=== PATIENT | female | born 1965 | race Hispanic/Latino ===

== ENCOUNTER 2018-06-02 20:56 | Inpatient (IN) | payer MEDICAID, OTHER ==
--- NOTE | 2018-06-02 21:21 | ED PDOC ---
Arrival/HPI - General Time Seen by Provider: 06/02/18 21:03 Historian: Patient - History of Present Illness Narrative History of Present Illness (Text): 06/02/18 21:20 Joleen Garcia is a 53 year old female, whose past medical history includes depression, who presents to the emergency department transferred from [facility] for depression and suicidal ideation. Patient was medically cleared at the previous institution and accepted for psychiatric admission by the psychiatrist medical sonographer. Patient admits to feeling depressed, notes she has been unable to take her anti-depressants due insurance issues. Patient denies any somatic complaints. Symptom Onset: Gradual Symptom Course: Unchanged Activities at Onset: Light Context: Other (Transferred from [facility]) Past Medical History - Provider Review Nursing Documentation Reviewed: Yes Family/Social History - Physician Review Nursing Documentation Reviewed: Yes Family/Social History: Unknown Family HX Allergies/Home Meds Allergies/Adverse Reactions: Allergies No Known Allergies Allergy (Verified 06/02/18 21:30) Home Medications: Home Meds Medication Instructions Recorded Confirmed RX: No Known Home Med 06/02/18 06/02/18 Review of Systems - Physician Review All systems were reviewed & negative as marked: Yes - Review of Systems Constitutional: Normal. absent: Fevers Eyes: Normal ENT: Normal Respiratory: Normal. absent: SOB, Cough Cardiovascular: Normal. absent: Chest Pain Gastrointestinal: Normal. absent: Abdominal Pain, Diarrhea, Nausea, Vomiting Genitourinary Female: Normal. absent: Dysuria, Frequency, Hematuria, Urine Output Changes Musculoskeletal: Normal. absent: Back Pain, Neck Pain Skin: Normal. absent: Rash Neurological: Normal. absent: Headache, Dizziness Endocrine: Normal Hemo/Lymphatic: Normal Psychiatric: Depression, Suicidal Ideation Physical Exam Vital Signs Reviewed: Yes Temperature: Afebrile Blood Pressure: Hypertensive Pulse: Regular Respiratory Rate: Normal Appearance: Positive for: Well-Appearing, Non-Toxic, Comfortable Pain Distress: None Mental Status: Positive for: Alert and Oriented X 3 - Systems Exam Head: Present: Atraumatic, Normocephalic Pupils: Present: PERRL Extroacular Muscles: Present: EOMI Conjunctiva: Present: Normal Mouth: Present: Moist Mucous Membranes Neck: Present: Normal Range of Motion Respiratory/Chest: Present: Clear to Auscultation, Good Air Exchange. No: Respiratory Distress, Accessory Muscle Use Cardiovascular: Present: Regular Rate and Rhythm, Normal S1, S2. No: Murmurs Abdomen: No: Tenderness, Distention, Peritoneal Signs Back: Present: Normal Inspection Upper Extremity: Present: Normal Inspection. No: Cyanosis, Edema Lower Extremity: Present: Normal Inspection. No: Edema Neurological: Present: GCS=15, CN II-XII Intact, Speech Normal Skin: Present: Warm, Dry, Normal Color. No: Rashes Psychiatric: Present: Alert, Oriented x 3, Normal Insight, Normal Concentration Medical Decision Making ED Course and Treatment: 06/02/18 21:55 Impression: 53 year old female transferred from [facility] for depression and suicidal ideation. Differential Diagnosis included but are not limited to: Plan: -- Admit to [facility] Progress Notes: Patient was medically cleared at the previous institution and accepted for psychiatric admission by the psychiatrist medical sonographer. Patient will be admitted to [facility] for depression and suicidal ideation. Pt agreeable with plan. - Scribe Statement The provider has reviewed the documentation as recorded by the [employer] [place] All medical record entries made by the Scribe were at my direction and personally dictated by me. I have reviewed the chart and agree that the record accurately reflects my personal performance of the history, physical exam, medical decision making, and the department course for this patient. I have also personally directed, reviewed, and agree with the discharge instructions and disposition. Disposition/Present on Arrival - Present on Arrival Any Indicators Present on Arrival: No History of DVT/PE: No History of Uncontrolled Diabetes: No Urinary Catheter: No History of Decub. Ulcer: No History Surgical Site Infection Following: None - Disposition Have Diagnosis and Disposition been Completed?: Yes Diagnosis: Depression, Suicidal ideation Disposition: HOSPITALIZED Disposition Time: 21:55 Patient Plan: Admission Patient Problems: Current Active Problems Problem Status Onset Depression Acute Suicidal ideation Acute Condition: STABLE
[2018-06-02 22:17] VITALS: O2SAT 97
[2018-06-02] MEDS ORDERED: Magnesium Hydroxide Susp 30 ml UD PO PRN (23:25)
[2018-06-02] MEDS ORDERED: Alum-Mag Hydrox-Simethicone Susp (30 mL) PO PRN (23:26)
--- NOTE | 2018-06-03 02:32 | PCM.BM ---
<Karla Duarte - Last Filed: 06/03/18 02:29> Treatment Plan Problems - Problems identified on initial assessmt Ineffective coping Date Initiated: 06/02/18 Time Initiated: 22:50 Assessment reference: NA Status: Active Altered Sleep Pattern Date Initiated: 06/02/18 Time Initiated: 22:55 Assessment reference: NA Status: Active <Rc Hendricks - Last Filed: 06/03/18 10:01> - Diagnosis (1) Depression Status: Acute Interventions: 06/03/18 10:01 Group, milieu and supportive tx * Lexapro 10 mg HS for depression and anxiety * Klonopin 0.5 mg po q12 prn anxiety * Ambien 5 mg po HS prn: insomnia. Sonata provided on 06/02/18 was not effective. * Nicotine patch 14 mg topical daily for nicotine cravings. * Awaiting medical consult <Dion Byers - Last Filed: 06/11/18 12:36>
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
[2018-06-04 07:13] LABS: BASO # 0.01 K/mm3 (0.0-2.0); BASO % 0.1 % (0.0-3.0); EOS # 0.2 (0.0-0.7); EOS % 2.2 % (1.5-5.0); GRAN # 6.71 (1.4-6.5); GRAN % 66.2 % (50.0-68.0); HEMOGLOBIN 14.8 g/dL (12.0-16.0); LYMPH # 2.6 (1.2-3.4); LYMPH % 25.2 % (22.0-35.0); MEAN CELL VOLUME 78.7 fl (80.0-105.0); MEAN CORPUSCULAR HEMOGLOBIN 26.3 pg (25.0-35.0); MEAN CORPUSCULAR HGB CONC 33.4 g/dl (31.0-37.0); MEAN PLATELET VOLUME 11.6 fl (7.0-11.0); MONO # 0.6 (0.1-0.6); MONO % 6.3 % (1.0-6.0); RBC 5.63 10^6/uL (3.5-6.1); WHITE BLOOD COUNT 10.1 10^3/uL (4.5-11.0)
[2018-06-04 07:25] LABS: ALB/GLOB RATIO 1.3 (1.1-1.8); ALBUMIN 3.8 g/dL (3.0-4.8); ALT/SGPT 25 U/L (7-56); AST/SGOT 12 U/L (14-36); BLOOD UREA NITROGEN 10 mg/dL (7-21); CALCIUM 9.1 mg/dL (8.4-10.5); GFR NON-AFRICAN AMERICAN > 60
--- NOTE | 2018-06-04 13:56 | CP.PCM.CON ---
History of Present Illness - History of Present Illness History of Present Illness: Resident Consult Note for Hospitalist Service Patient is a 53 year old female with past medical history of migraines, GERD, depression presenting with chief complaint of headache. The pain is described as a constant throbbing pain located all around her head. Patient states she has had migraines since she was a teenager. She typically sees flashing lights before the onset of the headache and that her symptoms are aggravated by stress. She has been noncompliant with her medications due to insurance issues. Patient was also found to have elevated blood pressure at 176/110. She denies any history of high blood pressure. She currently denies any dizziness, vision changes, hearing changes, chest pain, shortness of breath, abdominal pain, changes in bowel movements, dysuria. PMH: migraines, GERD, depression PSH: tubal ligation SHx: denies alcohol or recreational drug use. Smoked 1/2 PPD for over 30 years Allergies: NKDA Home meds: Protonix, Relpax, Lexapro 12 point ROS was negative except as stated in HPI Review of Systems - Constitutional Constitutional: Headache. absent: Chills, Fever - EENT Eyes: absent: Change in Vision Ears: absent: Abnormal Hearing - Cardiovascular Cardiovascular: absent: Chest Pain, Diaphoresis, Dyspnea - Respiratory Respiratory: absent: Cough - Gastrointestinal Gastrointestinal: absent: Abdominal Pain, Constipation, Diarrhea - Genitourinary Genitourinary: absent: Change in Urinary Stream, Difficulty Urinating, Dysuria, Urinary Incontinence, Urinary Frequency - Psychiatric Psychiatric: Depression Past Patient History - Past Social History Smoking Status: Light Smoker < 10 Cigarettes Daily - CARDIAC Hx Cardiac Disorders: No - PULMONARY Hx Respiratory Disorders: No - NEUROLOGICAL Hx Neurological Disorder: Yes Hx Migraine: Yes - HEENT Hx HEENT Problems: No - RENAL Hx Chronic Kidney Disease: No - ENDOCRINE/METABOLIC Hx Endocrine Disorders: No - HEMATOLOGICAL/ONCOLOGICAL Hx Blood Disorders: No - INTEGUMENTARY Hx Dermatological Problems: No - MUSCULOSKELETAL/RHEUMATOLOGICAL Hx Musculoskeletal Disorders: No - GASTROINTESTINAL Hx Gastrointestinal Disorders: No Hx Gastroesophageal Reflux: Yes - GENITOURINARY/GYNECOLOGICAL Hx Genitourinary Disorders: No - PSYCHIATRIC Hx Substance Use: No - SURGICAL HISTORY Hx Surgeries: No - ANESTHESIA Hx Anesthesia: No Meds Allergies/Adverse Reactions: Allergies Allergy/AdvReac Type Severity Reaction Status Date / Time No Known Allergies Allergy Verified 06/02/18 21:30 - Medications Medications: Current Medications Al Hydrox/Mg Hydrox/Simethicone (Maalox Plus 30 Ml) 30 ml PO DAILY PRN PRN Reason: Indigestion / Heartburn Amlodipine Besylate (Norvasc) 2.5 mg PO DAILY JENNIFER Clonazepam (Klonopin) 0.5 mg PO Q12 PRN; Protocol PRN Reason: Anxiety Last Admin: 06/04/18 02:17 Dose: 0.5 mg Escitalopram Oxalate (Lexapro) 10 mg PO HS JENNIFER Last Admin: 06/03/18 22:52 Dose: 10 mg Famotidine (Pepcid) 20 mg PO 1000,2200 JENNIFER Ibuprofen (Motrin Tab) 600 mg PO Q6H PRN PRN Reason: headache, fever >100 Last Admin: 06/04/18 11:05 Dose: 600 mg Magnesium Hydroxide (Milk Of Magnesia) 30 ml PO DAILY PRN PRN Reason: Constipation Nicotine (Nicoderm Cq) 1 patch TD DAILY JENNIFER Zolpidem Tartrate (Ambien) 5 mg PO HS PRN; Protocol PRN Reason: Insomnia Last Admin: 06/03/18 22:52 Dose: 5 mg Physical Exam - Constitutional Appears: Non-toxic, No Acute Distress - Head Exam Head Exam: ATRAUMATIC, NORMOCEPHALIC - Eye Exam Eye Exam: EOMI, Normal appearance, PERRL - ENT Exam ENT Exam: Mucous Membranes Moist, Normal Exam - Neck Exam Neck exam: Negative for: Lymphadenopathy, Tenderness - Respiratory Exam Respiratory Exam: Clear to Auscultation Bilateral, NORMAL BREATHING PATTERN. absent: Respiratory Distress - Cardiovascular Exam Cardiovascular Exam: REGULAR RHYTHM, +S1, +S2 - GI/Abdominal Exam GI & Abdominal Exam: Normal Bowel Sounds, Soft. absent: Tenderness - Extremities Exam Extremities exam: Positive for: full ROM, normal capillary refill, normal inspection. Negative for: calf tenderness - Neurological Exam Neurological exam: Alert, CN II-XII Intact, Oriented x3 - Psychiatric Exam Psychiatric exam: Normal Affect, Normal Mood - Skin Skin Exam: Dry, Intact, Normal Color Results - Vital Signs Recent Vital Signs: Last Vital Signs Temp 98.2 F 06/04/18 07:18 Pulse 81 06/04/18 07:18 Resp 20 06/04/18 07:18 BP 173/98 H 06/04/18 07:18 Pulse Ox 97 06/02/18 22:15 - Labs Result Diagrams: 06/04/18 06:40 06/04/18 06:40 Labs: Laboratory Results - last 24 hr 06/04/18 06/04/18 06:40 06:40 WBC 10.1 RBC 5.63 Hgb 14.8 Hct 44.3 MCV 78.7 L MCH 26.3 MCHC 33.4 RDW 16.0 H Plt Count 177 MPV 11.6 H Gran % 66.2 Lymph % (Auto) 25.2 [place] % (Auto) 6.3 H Eos % (Auto) 2.2 Baso % (Auto) 0.1 Gran # 6.71 H Lymph # (Auto) 2.6 [place] # (Auto) 0.6 Eos # (Auto) 0.2 Baso # (Auto) 0.01 Sodium 132 Potassium 3.8 Chloride 100 Carbon Dioxide 24 Anion Gap 12 BUN 10 Creatinine 0.6 L Est GFR ( Amer) > 60 Est GFR (Non-Af Amer) > 60 Random Glucose 113 H Calcium 9.1 Phosphorus 3.2 Magnesium 1.9 Total Bilirubin 0.8 AST 12 L ALT 25 Alkaline Phosphatase 58 Total Protein 6.8 Albumin 3.8 Globulin 3.0 Albumin/Globulin Ratio 1.3 Assessment & Plan - Assessment and Plan (Free Text) Assessment: Patient is a 53 year old female with past medical history of migraines, GERD, depression presenting with chief complaint of headache and was found to have rehan vated blood pressure. Plan: Hypertension - AM blood pressure was elevated at 176/110 - 2.5 mg amlodipine x2 was given - continue amlodipine 2.5 mg PO daily - Hydralazine 20 mg PO QID PRN - Followup renal ultrasound Migraines - Sumatriptan 25 mg PO once GERD - Continue pepcid 20 mg PO BID Depression - Continue management per psychiatry team Case discussed with attending Dr. Ingrid Dhillon PGY-1 - Date & Time Date: 06/04/18 Time: 08:00
[2018-06-04 16:10] LABS: URINE BILIRUBIN NEGATIVE (NEGATIVE); URINE BLOOD NEGATIVE (NEGATIVE); URINE GLUCOSE (UA) NEGATIVE (NEGATIVE); URINE LEUKOCYTE ESTERASE NEGATIVE Leu/uL (NEGATIVE); URINE PROTEIN NEGATIVE mg/dL (<30 mg/dL); URINE UROBILINOGEN 0.2 E.U./dL (<1 E.U./dL)
[2018-06-04 16:17] LABS: URINE APPEARANCE CLEAR (CLEAR); URINE COLOR YELLOW (YELLOW)
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
--- NOTE | 2018-06-05 09:55 | CP.PCM.PN ---
Subjective - Date & Time of Evaluation Date of Evaluation: 06/05/18 Time of Evaluation: 07:30 - Subjective Subjective: Resident Progress Note for Hospitalist Service No acute evens overnight. Patient states that her headache was improved earlier in the morning, but has now returned. She states that she now recalls having had a "popping sensation" in her head a few days prior. She admits to occasional blurry vision. She denies any dizziness, loss of consciousness, hearing changes. Objective - Vital Signs/Intake and Output Vital Signs (last 24 hours): Temp Pulse Resp BP Pulse Ox 97.9 F 84 20 141/92 H 97 06/05/18 06:50 06/05/18 07:07 06/05/18 06:50 06/05/18 09:04 06/02/18 22:15 - Medications Medications: Current Medications Al Hydrox/Mg Hydrox/Simethicone (Maalox Plus 30 Ml) 30 ml PO DAILY PRN PRN Reason: Indigestion / Heartburn Last Admin: 06/04/18 18:16 Dose: 30 ml Amlodipine Besylate (Norvasc) 2.5 mg PO ONCE ONE Stop: 06/05/18 17:08 Amlodipine Besylate (Norvasc) 5 mg PO DAILY [facility] Clonazepam (Klonopin) 0.5 mg PO Q12 PRN; Protocol PRN Reason: Anxiety Last Admin: 06/04/18 16:16 Dose: 0.5 mg Clonidine HCl (Catapres) 0.1 mg PO BID [facility] Last Admin: 06/05/18 07:07 Dose: 0.1 mg Escitalopram Oxalate (Lexapro) 10 mg PO HS [facility] Last Admin: 06/04/18 21:02 Dose: 10 mg Famotidine (Pepcid) 20 mg PO 1000,2200 [facility] Last Admin: 06/05/18 09:04 Dose: 20 mg Hydralazine HCl (Apresoline) 20 mg PO QID PRN PRN Reason: Other Last Admin: 06/04/18 20:29 Dose: 20 mg Ibuprofen (Motrin Tab) 600 mg PO Q6H PRN PRN Reason: headache, fever >100 Last Admin: 06/05/18 02:33 Dose: 600 mg Magnesium Hydroxide (Milk Of Magnesia) 30 ml PO DAILY PRN PRN Reason: Constipation Nicotine (Nicoderm Cq) 1 patch TD DAILY [facility] Last Admin: 06/05/18 09:05 Dose: 1 patch Zolpidem Tartrate (Ambien) 5 mg PO HS PRN; Protocol PRN Reason: Insomnia Last Admin: 06/04/18 21:14 Dose: 5 mg - Labs Labs: 06/04/18 06:40 06/04/18 06:40 - Additional Findings Additional findings: - Constitutional Appears: Non-toxic, No Acute Distress - Head Exam Head Exam: ATRAUMATIC, NORMOCEPHALIC - Eye Exam Eye Exam: EOMI, Normal appearance, PERRL - ENT Exam ENT Exam: Mucous Membranes Moist, Normal Exam - Neck Exam Neck exam: Negative for: Lymphadenopathy, Tenderness - Respiratory Exam Respiratory Exam: Clear to Auscultation Bilateral, NORMAL BREATHING PATTERN. absent: Respiratory Distress - Cardiovascular Exam Cardiovascular Exam: REGULAR RHYTHM, +S1, +S2 - GI/Abdominal Exam GI & Abdominal Exam: Normal Bowel Sounds, Soft. absent: Tenderness - Extremities Exam Extremities exam: Positive for: full ROM, normal capillary refill, normal inspection. Negative for: calf tenderness - Neurological Exam Neurological exam: Alert, CN II-XII Intact, Oriented x3 - Psychiatric Exam Psychiatric exam: Normal Affect, Normal Mood - Skin Skin Exam: Dry, Intact, Normal Color Assessment and Plan - Assessment and Plan (Free Text) Assessment: Patient is a 53 year old female with past medical history of migraines, GERD, depression presenting with chief complaint of headache and was found to have elevated blood pressure. Plan: Hypertension - AM blood pressure was 141/92 - continue amlodipine 10 mg PO daily - Renal ultrasound shows bilateral patent renal arteries Migraines - Head CT shows no acute intracranial findings - Relpax - Followup MRI brain w/o contrast - Neurology consulted. Appreciate recs. GERD - Continue pepcid 20 mg PO BID Depression - Continue management per psychiatry team Case discussed with attending Dr. Ingrid Dhillon PGY-1
[2018-06-05] MEDS: Pantoprazole 40 mg EC Tab PO SCH (12:14)
--- NOTE | 2018-06-05 13:34 | CT ---
Date of service: 06/05/2018 PROCEDURE: CT HEAD WITHOUT CONTRAST. HISTORY: persistent glroia w/ htn COMPARISON: None available. TECHNIQUE: Axial computed tomography images were obtained through the head/brain without intravenous contrast. Radiation dose: Total exam DLP = 989.77 mGy-cm. This CT exam was performed using one or more of the following dose reduction techniques: Automated exposure control, adjustment of the mA and/or kV according to patient size, and/or use of iterative reconstruction technique. FINDINGS: HEMORRHAGE: No intracranial hemorrhage. BRAIN: No mass effect or edema. No atrophy or chronic microvascular ischemic changes. VENTRICLES: Unremarkable. No hydrocephalus. CALVARIUM: Unremarkable. PARANASAL SINUSES: Mucosal thickening in the maxillary sinuses MASTOID AIR CELLS: Unremarkable as visualized. No inflammatory changes. OTHER FINDINGS: None. IMPRESSION: No acute intracranial findings
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
--- NOTE | 2018-06-05 22:21 | US ---
PROCEDURE: Bilateral renal artery duplex ultrasound. CLINICAL HISTORY: Renal artery stenosis. Uncontrolled hypertension. Evaluate for renovascular hypertension. PHYSICIAN(S): Davis Butler M.D. TECHNIQUE: Duplex sonography with color-flow Doppler was used to evaluate the visualized segments of the main renal arteries. The patient was evaluated in a fasting state. Imaging in a supine and decubitus position was performed. Limited evaluation of the arcuate waveforms and resistive indices were performed. FINDINGS: The overall quality of the study is adequate. The kidneys are normal in size, shape, and location. The right kidney measures 13.3cm in length and the left kidney measures 12.9cm in length. No solid renal masses, abnormal calcifications, or hydronephrosis is seen. The main right renal artery is fairly well visualized from the aorta to the hilum. The peak systolic velocity in the right main renal artery is 109 cm/sec. This is consistent with a 0 to 49% stenosis in the main right renal artery. The arcuate waveforms are normal. The resistive index is normal. The main left renal artery is also well seen from its origin to the renal hilum. The peak systolic velocity in the main left renal artery is 110 cm/sec. This corresponds to a 0 to 49% stenosis in the main left renal artery. The arcuate waveforms and resistive indices are normal. IMPRESSION: 1. The main renal arteries are fairly well visualized. 2. No sonographically significant stenosis is identified. 3. The kidneys are normal and symmetric in size. There are no solid renal masses, abnormal calcifications or hydronephrosis noted.
[2018-06-06] MEDS: Pantoprazole 40 mg EC Tab PO SCH (05:46)
--- NOTE | 2018-06-06 09:42 | MRI ---
Date of service: 06/06/2018 PROCEDURE: MRI BRAIN WITHOUT CONTRAST HISTORY: headache COMPARISON: None available. TECHNIQUE: Multiplanar, multisequence MR images of the brain were obtained without intravenous contrast enhancement. FINDINGS: HEMORRHAGE: None DWI: No evidence of an acute or early subacute infarction. BRAIN PARENCHYMA: No mass effect or edema. Chronic microvascular changes are seen in the periventricular white matter right greater than left VENTRICLES: Unremarkable. No hydrocephalus. CRANIUM: Unremarkable. ORBITS: Grossly unremarkable. PARANASAL SINUSES/MASTOIDS: Clear VASCULAR SYSTEM: Skull base flow voids intact. OTHER FINDINGS: None. IMPRESSION: No acute intracranial findings
--- NOTE | 2018-06-06 09:59 | CP.PCM.CON ---
History of Present Illness - History of Present Illness History of Present Illness: Neurology Consult Note for Dr. Gonzalez Patient is a 53 yo F with PMH of migraines, GERD, and depression who was admitted to [facility] for depression and suicidial ideation. Neurology was consulted due to headaches/migraines. Patient states that she has a constant, throbbing headache all around her head, which she has had since she was 16 years old. Patient states that she gets migraines 3 times a week and they are are a 20 out of 10. Patient states that she has a preceding aura of flashing lights prior to migraines and that stress and light worsens her migraines. She states that she was previously on Imitrex, but is now Relpax for her migraines. She is not on any prophylactic medications for migraines. Patient denies CP, SOB, n/v/d, a bdominal pain, fever, chills, or dizziness. PMH: migraines, GERD, depression PSH: tubal ligation SHx: denies alcohol or recreational drug use. Smoked 1/2 PPD for over 30 years Allergies: NKDA FHx: Mother- migraines Home meds: Protonix, Relpax, Lexapro Review of Systems - Review of Systems All systems: reviewed and no additional remarkable complaints except (12 point ROS reviewed and is negative other than what is stated in HPI.) Past Patient History - Past Social History Smoking Status: Light Smoker < 10 Cigarettes Daily - CARDIAC Hx Cardiac Disorders: No - PULMONARY Hx Respiratory Disorders: No - NEUROLOGICAL Hx Neurological Disorder: Yes Hx Migraine: Yes - HEENT Hx HEENT Problems: No - RENAL Hx Chronic Kidney Disease: No - ENDOCRINE/METABOLIC Hx Endocrine Disorders: No - HEMATOLOGICAL/ONCOLOGICAL Hx Blood Disorders: No - INTEGUMENTARY Hx Dermatological Problems: No - MUSCULOSKELETAL/RHEUMATOLOGICAL Hx Musculoskeletal Disorders: No - GASTROINTESTINAL Hx Gastrointestinal Disorders: No Hx Gastroesophageal Reflux: Yes - GENITOURINARY/GYNECOLOGICAL Hx Genitourinary Disorders: No - PSYCHIATRIC Hx Substance Use: No - SURGICAL HISTORY Hx Surgeries: No - ANESTHESIA Hx Anesthesia: No Meds Allergies/Adverse Reactions: Allergies Allergy/AdvReac Type Severity Reaction Status Date / Time No Known Allergies Allergy Verified 06/05/18 09:58 - Medications Medications: Current Medications Al Hydrox/Mg Hydrox/Simethicone (Maalox Plus 30 Ml) 30 ml PO DAILY PRN PRN Reason: Indigestion / Heartburn Last Admin: 06/04/18 18:16 Dose: 30 ml Amlodipine Besylate (Norvasc) 10 mg PO DAILY [facility] Last Admin: 06/06/18 09:37 Dose: 10 mg Clonazepam (Klonopin) 0.5 mg PO Q12 PRN; Protocol PRN Reason: Anxiety Last Admin: 06/05/18 20:04 Dose: 0.5 mg Escitalopram Oxalate (Lexapro) 15 mg PO DAILY [facility] Last Admin: 06/06/18 09:43 Dose: 15 mg Famotidine (Pepcid) 20 mg PO 1000,2200 [facility] Last Admin: 06/06/18 09:38 Dose: 20 mg Ibuprofen (Motrin Tab) 600 mg PO Q6H PRN PRN Reason: headache, fever >100 Last Admin: 06/06/18 05:46 Dose: 600 mg Magnesium Hydroxide (Milk Of Magnesia) 30 ml PO DAILY PRN PRN Reason: Constipation Nicotine (Nicoderm Cq) 1 patch TD DAILY [facility] Last Admin: 06/06/18 09:44 Dose: 1 patch Pantoprazole Sodium (Protonix Ec Tab) 40 mg PO 0600 [facility] Last Admin: 06/06/18 05:46 Dose: 40 mg Zolpidem Tartrate (Ambien) 5 mg PO HS PRN; Protocol PRN Reason: Insomnia Last Admin: 06/05/18 21:09 Dose: 5 mg Physical Exam - Constitutional Appears: No Acute Distress - Head Exam Head Exam: NORMAL INSPECTION - Eye Exam Eye Exam: Normal appearance Pupil Exam: NORMAL ACCOMODATION - ENT Exam ENT Exam: Normal Exam - Neck Exam Neck exam: Positive for: Normal Inspection - Respiratory Exam Respiratory Exam: Clear to Auscultation Bilateral. absent: Rales, Rhonchi, Wh eezes - Cardiovascular Exam Cardiovascular Exam: REGULAR RHYTHM - Extremities Exam Extremities exam: Positive for: normal inspection - Back Exam Back exam: NORMAL INSPECTION - Neurological Exam Neurological exam: Alert, CN II-XII Intact, Oriented x3, Reflexes Normal - Psychiatric Exam Psychiatric exam: Normal Affect - Skin Skin Exam: Normal Color Results - Vital Signs Recent Vital Signs: Last Vital Signs Temp 98.9 F 06/06/18 07:19 Pulse 92 H 06/06/18 07:19 Resp 20 06/06/18 07:19 BP 145/87 11/21/18 09:37 Pulse Ox 97 06/02/18 22:15 - Labs Result Diagrams: 06/04/18 06:40 06/04/18 06:40 Assessment & Plan - Assessment and Plan (Free Text) Assessment: 53 yo F with PMH of migraines, GERD, and HTN is admitted to [facility] for depression and suicidal ideation. Neurology consulted for migraines. Plan: - Head CT and Brain MRI negative - Recommend Topamax, Magnesium oxide, Vitamin B6, and Benadryl for migraines - Recommend limiting Relpax use up to three times per week, only as needed - Cont HTN control per medical team - Avoid migraine triggers as much as possible (e.g. bright lights, stress, etc.) - Follow up outpatient Patient seen and discussed in detail with Dr. Gonzalez. Ritchie Matos DO PGY2
--- NOTE | 2018-06-06 09:59 | PCM.PYCHPN ---
Psychiatric Progress Note - Psychiatric Progress Note Patient seen today, length of contact: 30 minutes Problems Identified/Issues Discussed: I reviewed recent notes and met with patient at bedside. She is fairly groomed, alert and oriented x3. She remembers me from our admission interview a few days ago. Patient reports that she remains depressed, her affect is is constricted. She denies any current SI and feels safe on the unit. Patient is tolerating her medications and denies any side effects however she continues to c/o headache (which started prior to admission). She doesn't have any other discomfort or pain at this time. There have been no major behavioral issues. She is coherent without any evidence of perceptual disturbance. Patient has been visible on the unit and according to staff notes, social with select peers. Diagnostic Results: Grief Major depression, Severe Anxiety Disorder Cocaine Abuse Medication Change: Yes (mental started yesterday) Medical Record Reviewed: Yes Mental Status Examination - Cognitive Function Orientation: Person, Place, Situation Memory: Intact Attention: Poor Concentration: Poor Association: WNL Fund of Knowledge: WNL - Mood Mood: Depressed, Anxious - Affect Affect: Constricted - Formal Thought Process Formal Thought Process: No Impairment - Suicidal Ideation Suicidal Ideation: No - Homicidal Ideation Homicidal Ideation: No Goal/Treatment Plan - Goal/Treatment Plan Need for Continued Stay: Remain at risks for inpatient hospitalization, Severe depression anxiety, Discharge may exacerbated symptoms, Severe functional impairment Progress Toward Problem(s) and Goals/Treatment Plan: * Group, milieu and supportive tx * Lexapro 15 mg HS for depression and anxiety * Klonopin 0.5 mg po q12 prn anxiety * Ambien 5 mg po HS prn: insomnia. Sonata provided on 06/02/18 was not effective. * Nicotine patch 14 mg topical daily for nicotine cravings. * Appreciate f/u by Dr. Quintero/Jacquie. ~Head CT and Brain MRI: no acute intracranial findings. ~Relpax was indicated on the progress note for treatment of migraines however was not ordered by team. Will have medicine f/u again. * Vitals reviewed and noted below: Selected Entries 06/05/18 06/05/18 06/05/18 06:50 07:07 09:04 Temperature 97.9 F Pulse Rate 84 84 Blood Pressure 155/105 H 155/105 H 141/92 H 06/05/18 06/05/18 16:00 17:41 Temperature Pulse Rate 84 Blood Pressure 126/85 126/85 Please refer to findings from physical exams and ROS from 06/01/18 [facility] records as well as 06/02/18 ER records at [facility] 06/01/18 [facility] records CBC with WBC 14.45H H/H 18.1H/55.2H K= 2.9L AST 14L CALCIUM 10.4h NA 132L EKG sinus rhythm 95 bpm, borderline prolonged Qtc CXR no acute pulmonary findings BAL<10 UDS +COCAINE +OPIATES Ua +nitrite, +LE, 5-10 wbc, moderate amount of bacteria Estimated Date of D/C: 06/08/18
[2018-06-06] MEDS: Magnesium Oxide 400 mg Tab UD PO SCH (11:18)
[2018-06-06 11:55] VITALS: BMI 32.4
--- NOTE | 2018-06-06 15:17 | CP.PCM.PN ---
Subjective - Date & Time of Evaluation Date of Evaluation: 06/06/18 Time of Evaluation: 07:30 - Subjective Subjective: Resident Progress Note for Hospitalist Service Patient examined at bedside. No acute events overnight. Patient states that her headache is improved. Patient has no other complaints at this time. Denies dizziness, chest pain, shortness of breath, abdominal pain, changes in bowel movements, dysuria. Objective - Vital Signs/Intake and Output Vital Signs (last 24 hours): Temp Pulse Resp BP Pulse Ox 98.9 F 92 H 20 145/87 97 06/06/18 07:19 06/06/18 07:19 06/06/18 07:19 06/06/18 09:37 06/02/18 22:15 - Medications Medications: Current Medications Al Hydrox/Mg Hydrox/Simethicone (Maalox Plus 30 Ml) 30 ml PO DAILY PRN PRN Reason: Indigestion / Heartburn Last Admin: 06/04/18 18:16 Dose: 30 ml Amlodipine Besylate (Norvasc) 7.5 mg PO DAILY [facility] Last Admin: 06/06/18 12:00 Dose: Not Given Clonazepam (Klonopin) 0.5 mg PO Q12 PRN; Protocol PRN Reason: Anxiety Last Admin: 06/05/18 20:04 Dose: 0.5 mg Diphenhydramine HCl (Benadryl) 25 mg PO Q6 PRN PRN Reason: Migraine headache Escitalopram Oxalate (Lexapro) 15 mg PO DAILY [facility] Last Admin: 06/06/18 09:43 Dose: 15 mg Famotidine (Pepcid) 20 mg PO 1000,2200 [facility] Last Admin: 06/06/18 09:38 Dose: 20 mg Ibuprofen (Motrin Tab) 600 mg PO Q6H PRN PRN Reason: headache, fever >100 Last Admin: 06/06/18 05:46 Dose: 600 mg Magnesium Hydroxide (Milk Of Magnesia) 30 ml PO DAILY PRN PRN Reason: Constipation Magnesium Oxide (Mag-Ox) 400 mg PO DAILY [facility] Last Admin: 06/06/18 11:18 Dose: 400 mg Nicotine (Nicoderm Cq) 1 patch TD DAILY [facility] Last Admin: 06/06/18 09:44 Dose: 1 patch Pantoprazole Sodium (Protonix Ec Tab) 40 mg PO 0600 [facility] Last Admin: 06/06/18 05:46 Dose: 40 mg Pyridoxine HCl (Vitamin B6 50 Mg Tab) 50 mg PO DAILY [facility] Last Admin: 06/06/18 11:18 Dose: 50 mg Topiramate (Topamax) 25 mg PO BID [facility]; Protocol Zolpidem Tartrate (Ambien) 5 mg PO HS PRN; Protocol PRN Reason: Insomnia Last Admin: 06/05/18 21:09 Dose: 5 mg - Labs Labs: 06/04/18 06:40 06/04/18 06:40 - Additional Findings Additional findings: - Constitutional Appears: Non-toxic, No Acute Distress - Head Exam Head Exam: ATRAUMATIC, NORMOCEPHALIC - Eye Exam Eye Exam: EOMI, Normal appearance - ENT Exam ENT Exam: Mucous Membranes Moist, Normal Exam - Neck Exam Neck exam: Negative for: Lymphadenopathy, Tenderness - Respiratory Exam Respiratory Exam: Clear to Auscultation Bilateral, NORMAL BREATHING PATTERN. absent: Respiratory Distress - Cardiovascular Exam Cardiovascular Exam: REGULAR RHYTHM, +S1, +S2 - GI/Abdominal Exam GI & Abdominal Exam: Normal Bowel Sounds, Soft. absent: Tenderness - Extremities Exam Extremities exam: Positive for: full ROM, normal capillary refill, normal inspection. Negative for: calf tenderness - Neurological Exam Neurological exam: Alert, Oriented x3 - Psychiatric Exam Psychiatric exam: Normal Affect, Normal Mood - Skin Skin Exam: Dry, Intact, Normal Color Assessment and Plan - Assessment and Plan (Free Text) Assessment: Patient is a 53 year old female with past medical history of migraines, GERD, depression presenting with chief complaint of headache and was found to have elevated blood pressure. Plan: Hypertension - AM blood pressure was 145/87 - Renal ultrasound shows bilateral patent renal arteries - continue amlodipine 7.5 mg PO daily Migraines - Head CT shows no acute intracranial findings - MRI brain w/o contrast shows no acute intracranial findings - Neurology consulted. Recs appreciated. GERD - Continue pepcid 20 mg PO BID Depression - Continue management per psychiatry team Medicine team will sign off at this time. Thank you for this opportunity. Please reconsult as necessary. Case discussed with attending Dr. Ingrid Dhillon PGY-1
[2018-06-07] MEDS: Pantoprazole 40 mg EC Tab PO SCH (06:59)
[2018-06-07] MEDS: Magnesium Oxide 400 mg Tab UD PO SCH (09:17)
--- NOTE | 2018-06-07 10:34 | PCM.PYCHPN ---
Psychiatric Progress Note - Psychiatric Progress Note Patient seen today, length of contact: 30 minutes Problems Identified/Issues Discussed: I reviewed recent notes and met with patient in the march. Her grooming is fair and she remains oriented x3. Patient reports that she remains depressed. Her affect is constricted but more reactive and spontaneous than earlier this week. She denies any current SI and feels safe on the unit. Patient is tolerating her medications and denies any side effects however she continues to c/o headache (which started prior to admission). She doesn't have any other discomfort or pain at this time. Sleep is still poor. There have been no major behavioral issues. She is coherent without any evidence of perceptual disturbance. Patient has been visible on the unit and according to staff notes, social with select peers. She appears brighter and seems to be doing better than at admission. Diagnostic Results: Grief Major depression, Severe Anxiety Disorder Cocaine Abuse Medication Change: Yes (seroquel started, ambien d/c'ed) Medical Record Reviewed: Yes Mental Status Examination - Cognitive Function Orientation: Person, Place, Situation Memory: Intact Attention: Poor Concentration: Poor Association: WNL Fund of Knowledge: WNL - Mood Mood: Depressed, Anxious - Affect Affect: Constricted - Formal Thought Process Formal Thought Process: No Impairment - Suicidal Ideation Suicidal Ideation: No - Homicidal Ideation Homicidal Ideation: No Goal/Treatment Plan - Goal/Treatment Plan Need for Continued Stay: Remain at risks for inpatient hospitalization, Severe depression anxiety, Discharge may exacerbated symptoms, Severe functional impairment Progress Toward Problem(s) and Goals/Treatment Plan: * Group, milieu and supportive tx * Lexapro 15 mg HS for depression and anxiety * Klonopin 0.5 mg po q12 prn anxiety * d/c 'ed Ambien and Sonata, both ineffective for insomnia. Started Seroquel 50 mg po HS, off label, on 06/07/18 for poor sleep. * Nicotine patch 14 mg topical daily for nicotine cravings. * Appreciate f/u by Dr. Gonzalez/Dr. Matos (neurology) on 06/06/18 * Appreciate f/u by Dr. Quintero/Jacquie on 06/06/18~signed off. ~Head CT and Brain MRI: no acute intracranial findings. * Vitals reviewed and noted below: Selected Entries 06/06/18 06/06/18 06/06/18 07:19 09:37 16:00 Temperature 98.9 F Pulse Rate 92 H 105 H Respiratory 20 Rate Blood Pressure 145/87 145/87 138/89 Please refer to findings from physical exams and ROS from 06/01/18 [facility] records as well as 06/02/18 ER records at [facility] 06/01/18 [facility] records CBC with WBC 14.45H H/H 18.1H/55.2H K= 2.9L AST 14L CALCIUM 10.4h NA 132L EKG sinus rhythm 95 bpm, borderline prolonged Qtc CXR no acute pulmonary findings BAL<10 UDS +COCAINE +OPIATES Ua +nitrite, +LE, 5-10 wbc, moderate amount of bacteria Estimated Date of D/C: 06/08/18
[2018-06-08] MEDS: Pantoprazole 40 mg EC Tab PO SCH (07:36)
--- NOTE | 2018-06-08 08:53 | PCM.PYCHPN ---
Psychiatric Progress Note - Psychiatric Progress Note Patient seen today, length of contact: 30 minutes Problems Identified/Issues Discussed: I reviewed recent notes and met with patient at bedside. Her grooming is fair and she remains oriented x3. Patient reports that she slept better last night with seroquel. She denies any side effects from this medication. Also reports that headache is improving however believes this may be because she refused to take topamax. Her affect is depressed and constricted but more reactive and spontaneous than earlier this week. Still appears disengaged but thankful for my help. She denies any current SI or AVH and feels safe on the unit. There have been no major behavioral issues. She is coherent without any evidence of perceptual disturbance. Patient has been visible on the unit and according to staff notes, social with select peers. She appears brighter and seems to be doing better than at admission. Diagnostic Results: Grief Major depression, Severe Anxiety Disorder Cocaine Abuse Medication Change: No ( ) Medical Record Reviewed: Yes Mental Status Examination - Cognitive Function Orientation: Person, Place, Situation Memory: Intact Attention: WNL Concentration: Poor Association: WNL Fund of Knowledge: WNL - Mood Mood: Depressed, Anxious - Affect Affect: Constricted - Formal Thought Process Formal Thought Process: No Impairment - Suicidal Ideation Suicidal Ideation: No - Homicidal Ideation Homicidal Ideation: No Goal/Treatment Plan - Goal/Treatment Plan Need for Continued Stay: Remain at risks for inpatient hospitalization, Severe depression anxiety, Discharge may exacerbated symptoms, Severe functional impairment Progress Toward Problem(s) and Goals/Treatment Plan: * Group, milieu and supportive tx * Lexapro 15 mg HS for depression and anxiety * Klonopin 0.5 mg po q12 prn anxiety * d/c 'ed Ambien and Sonata, both ineffective for insomnia. Started Seroquel 50 mg po HS, off label, on 06/07/18 for poor sleep. * Nicotine patch 14 mg topical daily for nicotine cravings. * Appreciate f/u by Dr. Gonzalez/Dr. Matos (neurology) on 06/06/18 * Appreciate f/u by Dr. Quintero/Jacquie on 06/06/18~signed off. ~Head CT and Brain MRI: no acute intracranial findings. * Vitals reviewed and noted below: Selected Entries 06/06/18 06/06/18 06/06/18 07:19 09:37 16:00 Temperature 98.9 F Pulse Rate 92 H 105 H Respiratory 20 Rate Blood Pressure 145/87 145/87 138/89 06/07/18 06/07/18 06/07/18 07:02 07:07 16:00 Temperature 99.4 F Pulse Rate 107 H 107 H 92 H Respiratory 22 Rate Blood Pressure 164/104 H 164/104 H 168/104 H Please refer to findings from physical exams and ROS from 06/01/18 [facility] records as well as 06/02/18 ER records at [facility] 06/01/18 [facility] records CBC with WBC 14.45H H/H 18.1H/55.2H K= 2.9L AST 14L CALCIUM 10.4h NA 132L EKG sinus rhythm 95 bpm, borderline prolonged Qtc CXR no acute pulmonary findings BAL<10 UDS +COCAINE +OPIATES Ua +nitrite, +LE, 5-10 wbc, moderate amount of bacteria Estimated Date of D/C: 06/08/18
[2018-06-08] MEDS: Magnesium Oxide 400 mg Tab UD PO SCH (09:57)
[2018-06-09] MEDS: Pantoprazole 40 mg EC Tab PO SCH (07:45)
--- NOTE | 2018-06-09 09:17 | PCM.PYCHPN ---
Psychiatric Progress Note - Psychiatric Progress Note Patient seen today, length of contact: 30 minutes Problems Identified/Issues Discussed: I reviewed recent notes and met with patient at bedside. Her grooming is fair and she remains oriented x3. Patient reports that she has been sleeping better with seroquel x2 nights thus far. She denies any side effects from this medication. Also reports that headache continues to improve. Her affect remains constricted but more reactive and spontaneous than earlier this week. Still appears a little aloof but thankful for my help. She denies any current SI or AVH and feels safe on the unit. There have been no major behavioral issues. She is coherent without any evidence of perceptual disturbance. Patient has been visible on the unit and according to staff notes, pleasant, interactive in groups and social with select peers. She appears brighter and seems to be doing better than at admission. Diagnostic Results: Grief Major depression, Severe Anxiety Disorder Cocaine Abuse Medication Change: No ( ) Medical Record Reviewed: Yes Mental Status Examination - Cognitive Function Orientation: Person, Place, Situation Memory: Intact Attention: WNL Concentration: Poor Association: WNL Fund of Knowledge: WNL - Mood Mood: Depressed, Anxious - Affect Affect: Constricted - Formal Thought Process Formal Thought Process: No Impairment - Suicidal Ideation Suicidal Ideation: No - Homicidal Ideation Homicidal Ideation: No Goal/Treatment Plan - Goal/Treatment Plan Need for Continued Stay: Remain at risks for inpatient hospitalization, Severe depression anxiety, Discharge may exacerbated symptoms, Severe functional impairment Progress Toward Problem(s) and Goals/Treatment Plan: * Group, milieu and supportive tx * Lexapro 15 mg HS for depression and anxiety * Klonopin 0.5 mg po q12 prn anxiety * d/c 'ed Ambien and Sonata, both ineffective for insomnia. Started Seroquel 50 mg po HS, off label, on 06/07/18 for poor sleep. * Nicotine patch 14 mg topical daily for nicotine cravings. * Appreciate f/u by Dr. Gonzalez/Dr. Matos (neurology) on 06/06/18 * Appreciate f/u by Dr. Quintero/Jacquie on 06/06/18~signed off. ~Head CT and Brain MRI: no acute intracranial findings. * Vitals reviewed and noted below: Selected Entries 06/07/18 06/07/18 06/08/18 07:07 16:00 07:29 Temperature 99.4 F 99.5 F Pulse Rate 107 H 92 H 111 H Respiratory 22 22 Rate Blood Pressure 164/104 H 168/104 H 153/96 H 06/08/18 09:57 Temperature Pulse Rate Respiratory Rate Blood Pressure 153/93 H Please refer to findings from physical exams and ROS from 06/01/18 [facility] records as well as 06/02/18 ER records at [facility] 06/01/18 [facility] records CBC with WBC 14.45H H/H 18.1H/55.2H K= 2.9L AST 14L CALCIUM 10.4h NA 132L EKG sinus rhythm 95 bpm, borderline prolonged Qtc CXR no acute pulmonary findings BAL<10 UDS +COCAINE +OPIATES Ua +nitrite, +LE, 5-10 wbc, moderate amount of bacteria Estimated Date of D/C: 06/08/18
[2018-06-09] MEDS: Magnesium Oxide 400 mg Tab UD PO SCH ×2 (10:23→10:53)
[2018-06-10] MEDS: Pantoprazole 40 mg EC Tab PO SCH (06:44)
[2018-06-10] MEDS: Magnesium Oxide 400 mg Tab UD PO SCH (08:50)
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
[2018-06-11] MEDS: Pantoprazole 40 mg EC Tab PO SCH (06:46)
[2018-06-11] MEDS: Magnesium Oxide 400 mg Tab UD PO SCH ×2 (08:30→08:40)
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
[2018-06-12] MEDS: Pantoprazole 40 mg EC Tab PO SCH (06:23)
[2018-06-12 07:21] VITALS: RESP 20
--- NOTE | 2018-06-12 09:12 | PCM.BM ---
<Seble Regalado Y - Last Filed: 06/12/18 09:11> Treatment Plan Problems - Problems identified on initial assessmt Ineffective coping Date Initiated: 06/02/18 Time Initiated: 22:50 Assessment reference: NA Status: Active Altered Sleep Pattern Date Initiated: 06/02/18 Time Initiated: 22:55 Assessment reference: NA Status: Active - Milieu Protocol Milieu Narrative: Milieu/structure/supportive therapy Medical consult appreciated, see medical team note for more detailed info neurology consult appreciated CT of the head and MRI of brain with no acute changes SW consultation for discharge plan and social issues Med management Klonopin 0.5 mg twice a day for anxiety Lexapro d/c prozac 20mg po daily for depression and anxiety Ambien was d/c seroquel 50mg po hs for mood stabilization Family involvement Follow up on labs Will monitor closely Pt was educated about risk/benefits and alternatives of medications, coping strategies (safety plan, suicide prevention), relapse prevention, importance of follow up with psychiatrist and therapist, stay away from drugs/alcohol/smoking Family Contact Family contact: Patient agrees to contact Discharge/Continuing Care - Treatment Team Participation Patient/Family/SO Statement: Milieu/structure/supportive therapy Medical consult appreciated, see medical team note for more detailed info neurology consult appreciated CT of the head and MRI of brain with no acute changes SW consultation for discharge plan and social issues Med management Klonopin 0.5 mg twice a day for anxiety Lexapro d/c prozac 20mg po daily for depression and anxiety Ambien was d/c seroquel 50mg po hs for mood stabilization Family involvement Follow up on labs Will monitor closely Pt was educated about risk/benefits and alternatives of medications, coping strategies (safety plan, suicide prevention), relapse prevention, importance of follow up with psychiatrist and therapist, stay away from drugs/alcohol/smoking Treatment Plan Review - Problem Ineffective coping Time Initiated: 22:50 Altered Sleep Pattern Time Initiated: 22:55 <Denise Rodriguez - Last Filed: 06/12/18 12:34> - Diagnosis (1) Depression Status: Acute Interventions: 06/03/18 10:01 Group, milieu and supportive tx * Lexapro d/c * prozac started * Klonopin 0.5 mg po q12 prn anxiety * Ambien 5 mg po HS prn: insomnia. Sonata provided on 06/02/18 was not effective. * Nicotine patch 14 mg topical daily for nicotine cravings. * med consult appreciated for HTN * pt denied suicidal or homicidal ideation, more hopeful 06/12/18 12:33
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
[2018-06-13] MEDS: Pantoprazole 40 mg EC Tab PO SCH (06:48)
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
[2018-06-14] MEDS: Pantoprazole 40 mg EC Tab PO SCH (06:58)
[2018-06-14 07:17] VITALS: TEMP 98.6
[2018-06-14 08:54] VITALS: BP 134/84; PULSE 88
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
== END 2018-06-14 12:44 | disposition home or self-care (01) | DRG 754 ==
LOC: ED 20:56 → ERH 21:55 → PSYC 22:32
PROVIDERS: ADMIT Psychiatry & Neurology Psychiatry; ATTEND Psychiatry & Neurology Psychiatry
DX: F32.9 Major depressive disorder, single episode, unspecified (principal); R45.851 Suicidal ideations; Z91.14 Patient's other noncompliance with medication regimen; I10 Essential (primary) hypertension; F14.14 Cocaine abuse with cocaine-induced mood disorder; F41.9 Anxiety disorder, unspecified; G43.909 Migraine, unspecified, not intractable, without status migrainosus; G47.00 Insomnia, unspecified; K21.9 Gastro-esophageal reflux disease without esophagitis; Z79.899 Other long term (current) drug therapy; F17.210 Nicotine dependence, cigarettes, uncomplicated; F43.21 Adjustment disorder with depressed mood; Z98.51 Tubal ligation status